=== PATIENT | male | born 1985 | race Caucasian/White ===

== ENCOUNTER 2019-08-25 11:59 | Emergency (ER) | payer BC, OTHER ==
--- NOTE | 2019-08-25 13:58 | EDM.PDOC ---
ED HPI GENERAL MEDICAL PROBLEM - General Chief Complaint: Laceration Stated Complaint: CUT LIP/HIT IN MOUTH WOOD WORKING Time Seen by Provider: 08/25/19 13:00 Source of Information: Reports: Patient History Limitations: Reports: No Limitations - History of Present Illness INITIAL COMMENTS - FREE TEXT/NARRATIVE: Patient was cutting wood on his table saw, when a piece of wood flinged out of the saw and into the patient's chin and mouth. Laceration to chin and inside of patient's bottom lip. Patient unsure when his last tetanus immunization was. Wound bleed and patient denies any pain, dental/gum injury, eye irritation, vision changes, or numbness/tingling. Onset: Today Location: Reports: Face - Related Data Allergies Allergy/AdvReac Type Severity Reaction Status Date / Time No Known Allergies Allergy Verified 08/25/19 12:57 Home Meds: Home Meds NK [No Known Home Meds] 08/25/19 [History] ED ROS GENERAL - Review of Systems Review Of Systems: See Below Constitutional: Reports: No Symptoms HEENT: Reports: No Symptoms Skin: Reports: Other Neurological: Reports: No Symptoms Free Text/Narrative/Comment: laceration to chin and mucus membrane of bottom lip ED EXAM, SKIN/RASH Exam: See Below Text/Narrative:: please see rest of note Exam Limited By: No Limitations General Appearance: Alert, No Apparent Distress Throat/Mouth: Normal Teeth, Normal Gums, Normal Voice, Other Head: Atraumatic, Normocephalic Skin: Warm, Dry, Wound/Incision Location, Skin: Face Comments: 3.0 cm linear, subcutaneous, and gaping laceration to chin starting from border of right bottom lip down diagonally to left chin. 1.5 cm linear, subcutaneous, and gaping laceration to mucus membrane of bottom lip. No foreign body seen on examination. ED SKIN PROCEDURES - Laceration/Wound Repair Mouth Appearance: Subcutaneous, Linear, Clean Distal NVT: Neuro & Vascular Intact Anesthetic Type: Local Local Anesthesia - Lidocaine (Xylocaine): 1% with EPI Skin Prep: Chlorhexidine (Hibiciens) Saline Irrigation (cc's): 200 Exploration/Debridement/Repair: Wound Explored Closed with: Sutures Lac/Wound length In cm: 1.5 Suture Size: 6-0 # of Sutures: 5 Suture Type: Interrupted, Simple, Other Sterile Dressing Applied: None Tetanus Status Addressed: Yes Complications: No Progress/Comments: Ethilon suture used. Face Appearance: Subcutaneous, Linear, Clean Distal NVT: Neuro & Vascular Intact Anesthetic Type: Local Local Anesthesia - Lidocaine (Xylocaine): 1% with EPI Skin Prep: Chlorhexidine (Hibiciens) Saline Irrigation (cc's): 200 Exploration/Debridement/Repair: Wound Explored Closed with: Sutures Lac/Wound length In cm: 3.0 Suture Size: 6-0 # of Sutures: 9 Suture Type: Interrupted, Simple, Other Repaired with: Other Drain Placement: No Sterile Dressing Applied: None Tetanus Status Addressed: Yes Complications: No Progress/Comments: Tetanus immunization given. Bacitracin ointment applied to wound Departure - Departure Time of Disposition: 14:06 Disposition: Home, Self-Care 01 Condition: Good Clinical Impression: Laceration - Discharge Information *PRESCRIPTION DRUG MONITORING PROGRAM REVIEWED*: No *COPY OF PRESCRIPTION DRUG MONITORING REPORT IN PATIENT SIRISHA: No Instructions: Wound Care, Adult, Laceration Care, Adult, [id number], Sutures, [place], or Adhesive Wound Closure, [id number] Referrals: PCP,None [Primary Care Provider] - Forms: ED Department Discharge Additional Instructions: Discharge home. Monitor for signs of infection: increased pain, pus, redness. Tetanus shot given in the ER. Use soap and water to clean the suture line. No peroxide. Bacitracin 2 times a day for 3 days, pea sized amount. Liquid diet or soft foods today. Ibuprofen and Tylenol as needed for pain. Return to the clinic or hospital for suture removal in 10 days, September 03. Follow up as needed. - Assessment/Plan Assessment:: laceration repair. See above Plan: Keep laceration clean and dry. Apply bacitracin ointment twice daily x 3 days. Have sutures removed in 10 days. Soft foods and liquid diet x 2-3 days. Return to the ED for fever >102, unable to tolerate fluids, difficulty breathing/swallowing, and/or persistent/worsening symptoms.
[2019-08-25] MEDS ORDERED: Diphtheria/Tetanus Toxoids,Adult (Td) 0.5 ML SDV IM ONE (14:02)
[2019-08-28] MEDS ORDERED: Lidocaine 1% with EPINEPHrine 1:100,000 20 ML MDV INJECT ONE (23:39)
[2019-08-29] MEDS ORDERED: Lidocaine 1% with EPINEPHrine 1:100,000 20 ML MDV INJECT ONE (09:37)
== END 2019-08-25 13:45 | disposition home or self-care (01) ==
LOC: LB.ED 11:59
DX: S01.81XA Laceration without foreign body of other part of head, initial encounter (principal); S01.511A Laceration without foreign body of lip, initial encounter; Z23 Encounter for immunization; W27.0XXA Contact with workbench tool, initial encounter
CPT/HCPCS: 12013; 90471; 90714; 99282; 99283